=== PATIENT | male | born 1985 | race Caucasian/White ===

== ENCOUNTER 2024-01-20 07:17 | Outpatient (CLI) | payer OTHER, SELFPAY ==
--- NOTE | ~2024-01-20 | XR_ITS ---
XR chest 2V Ordering provider: Geoffrey Torres MD History: 38 years Male with . R07.89 - Other chest pain, CRACKLING TO CHEST . Comparison: None. FINDINGS: MEDIASTINUM: The cardiac silhouette is not enlarged. LUNGS: No infiltrates, effusions or pneumothorax. OTHER: No free air under the diaphragm. IMPRESSION: No acute cardiopulmonary pathology. Reviewed, dictated and finalized at location A. [employer]
[2024-01-20 07:53] LABS: Hematocrit 46.7 % (42.0-52.0); Hemoglobin 15.9 g/dL (14.0-18.0); Mean Corpuscular Hemoglobin 29.7 pg (26-34); Mean Corpuscular Volume 87.3 fl (80-100); Mean Platelet Volume 9.2 fl (7.4-10.4); Platelet Count Result 253 k/mm3 (150-375); Red Blood Count 5.35 M/mm3 (4.6-6.20); Red Cell Distribution Width 12.2 % (11.5-14.5); White Blood Count 5.8 K/mm3 (4.5-10.0)
[2024-01-20 08:02] LABS: Anion Gap 7 mmol/L (4-12); Blood Urea Nitrogen 11 mg/dL (9-20); Carbon Dioxide 28 mmol/L (22-30); Chloride 105 mmol/L (98-107); Cholesterol 198 mg/dL (0-200); Estimated Glomerular Filt Rate > 60; Glucose 98 mg/dL (65-110); HDL Direct 38 mg/dL; Potassium 4.3 mmol/L (3.4-5.0); Sodium 140 mmol/L (137-145); Triglycerides 128 mg/dL (<150)
[2024-01-20 08:13] LABS: LDL Cholesterol Direct 127 mg/dL
== END 2024-01-20 07:18 | disposition home or self-care (01) ==
LOC: ANHLAB 07:18
PROVIDERS: PCP Family Medicine; Visit Provider Family Medicine
DX: R07.89 Other chest pain (principal); R03.0 Elevated blood-pressure reading, without diagnosis of hypertension; Z13.220 Encounter for screening for lipoid disorders
CPT/HCPCS: 36415; 71046; 80048; 80061; 84443; 85027

== ENCOUNTER 2024-01-27 11:15 | Outpatient (CLI) | payer OTHER, SELFPAY ==
--- NOTE | 2024-01-27 11:20 | EST_ITS ---
Patient Info Name: Seven Padgett Age: 39 years : 1985 Gender: Male Ht: 74 in Wt: 255 lbs BSA: 2.49 m2 HR: 68 bpm BP: 119 / 76 mmHg Exam Date: 01/27/2024 11:32 AM Exam Location: [facility] Patient Status: Outpatient Admit Date: 01/27/2024 Staff Ordering Physician: Geoffrey Torres MD Attending Provider: Geoffrey Torres MD Exercise Technologist: Yun Rizvi [facility] Exercise Physician: Bebeto Portillo DO Exam Type: CA stress test treadmill Study Info A treadmill exercise stress test was performed. Summary 1. 1. Negative Abelardo exercise stress test for ischemic ST changes by ECG. 2. 2. Good functional capacity, achieving 12 METs of workload. 3. 3. Appropriate HR response to exercise. 4. 4. Appropriate HR recovery at 1 minute post exercise. 5. 5. No imaging with stress testing. 6. 6. Patient informed of the above results. Protocol: Abelardo Stress ECG Details Stage: REST Duration (min): 1 min : 35 sec Speed (mph): 0.0 Grade (%): 0 HR (bpm): 66 SBP (mmHg): --- DBP (mmHg): --- METS: --- Stage: REST Duration (min): 2 min : 55 sec Speed (mph): 0.0 Grade (%): 0 HR (bpm): 68 SBP (mmHg): 118 DBP (mmHg): 80 METS: --- Stage: REST Duration (min): 10 min : 18 sec Speed (mph): 0.0 Grade (%): 0 HR (bpm): 74 SBP (mmHg): 118 DBP (mmHg): 80 METS: --- Stage: STAGE 1 Duration (min): 1 min : 0 sec Speed (mph): 1.7 Grade (%): 10 HR (bpm): 102 SBP (mmHg): 118 DBP (mmHg): 80 METS: --- Stage: STAGE 1 Duration (min): 2 min : 0 sec Speed (mph): 1.7 Grade (%): 10 HR (bpm): 110 SBP (mmHg): 118 DBP (mmHg): 80 METS: --- Stage: STAGE 1 Duration (min): 3 min : 0 sec Speed (mph): 1.7 Grade (%): 10 HR (bpm): 107 SBP (mmHg): 157 DBP (mmHg): 95 METS: --- Stage: STAGE 2 Duration (min): 1 min : 0 sec Speed (mph): 2.5 Grade (%): 12 HR (bpm): 110 SBP (mmHg): 157 DBP (mmHg): 95 METS: --- Stage: STAGE 2 Duration (min): 2 min : 0 sec Speed (mph): 2.5 Grade (%): 12 HR (bpm): 118 SBP (mmHg): 170 DBP (mmHg): 86 METS: --- Stage: STAGE 2 Duration (min): 3 min : 0 sec Speed (mph): 2.5 Grade (%): 12 HR (bpm): 120 SBP (mmHg): 170 DBP (mmHg): 86 METS: --- Stage: STAGE 3 Duration (min): 1 min : 0 sec Speed (mph): 3.4 Grade (%): 14 HR (bpm): 132 SBP (mmHg): 172 DBP (mmHg): 84 METS: --- Stage: STAGE 3 Duration (min): 2 min : 0 sec Speed (mph): 3.4 Grade (%): 14 HR (bpm): 136 SBP (mmHg): 172 DBP (mmHg): 84 METS: --- Stage: STAGE 3 Duration (min): 3 min : 0 sec Speed (mph): 3.4 Grade (%): 14 HR (bpm): 144 SBP (mmHg): 185 DBP (mmHg): 70 METS: --- Stage: STAGE 4 Duration (min): 1 min : 0 sec Speed (mph): 4.2 Grade (%): 16 HR (bpm): 154 SBP (mmHg): 185 DBP (mmHg): 70 METS: --- Stage: STAGE 4 Duration (min): 2 min : 0 sec Speed (mph): 4.2 Grade (%): 16 HR (bpm): 160 SBP (mmHg): 207 DBP (mmHg): 79 METS: --- Stage: STAGE 4 Duration (min): 2 min : 2 sec Speed (mph): 4.2 Grade (%): 16 HR (bpm): 160 SBP (mmHg): 207 DBP (mmHg): 79 METS: --- Stage: RECOVERY Duration (min): 0 min : 57 sec Speed (mph): 0.0 Grade (%): 0 HR (bpm): 131 SBP (mmHg): 207 DBP (mmHg): 79 METS: --- Stage: RECOVERY Duration (min): 1 min : 57 sec Speed (mph): 0.0 Grade (%): 0 HR (bpm): 116 SBP (mmHg): 207 DBP (mmHg): 79 METS: --- Stage: RECOVERY Duration (min): 2 min : 57 sec Speed (mph): 0.0 Grade (%): 0 HR (bpm): 105 SBP (mmHg): 150 DBP (mmHg): 58 METS: --- Stage: RECOVERY Duration (min): 3 min : 4 sec Speed (mph): 0.0 Grade (%): 0 HR (bpm): 104 SBP (mmHg): 150 DBP (mmHg): 58 METS: --- Rest HR: 74 bpm Peak HR: 160 bpm Rest Sys BP: 118 mmHg Peak Sys BP: 207 mmHg Max Pred HR: 180 bpm % Max Pred HR: 89 % Target HR: 153 bpm Max RPP: 33,120 bpm*mmHg Cunningham Score: 0 Termination Reason: Reached target heart rate or workload Cardiac Symptoms: Shortness of breath Max ST Seg Deviation: -2.20 mm Total Time: 11 min : 2 sec Rest Jones BP: 80 mmHg Peak Jones BP: 79 mmHg Angina Score: None Total METS: 12.1 Resting ECG Sinus rhythm, IRBBB, borderline ST-T wave in inferior leads. Stress ECG No ST changes. Arrhythmias None. Report Signatures
== END 2024-01-27 11:16 | disposition home or self-care (01) ==
PROVIDERS: PCP Family Medicine; Visit Provider Family Medicine
DX: R07.89 Other chest pain (principal)
CPT/HCPCS: 93017